=== PATIENT | female | born 1985 | race African-American/Black ===

== ENCOUNTER 2018-02-02 14:41 | Emergency (ER) | payer SELFPAY ==
[~2018-02-02] VITALS: Ht 170.2 cm; Wt 70.3 kg
[2018-02-02 15:28] LABS: Basophils # (auto) 0 uL; Basophils % (auto) 0.4 % (0.0-2.0); Eosinophils # (auto) 0.1 uL; Hematocrit 37.3 % (36.0-46.0); Hemoglobin 12.2 g/dL (12.2-16.2); Lymphocytes # (auto) 1.3 uL; Lymphocytes % (auto) 35.3 % (10.0-50.0); Mean Corpuscular Hemoglobin 29.7 pg (28.0-32.0); Mean Corpuscular Hgb Conc. 32.8 g/dL (32.0-36.0); Mean Corpuscular Volume 90.5 fL (80.0-100.0); Monocytes # (auto) 0.2 uL; Monocytes % (auto) 6.6 % (0.0-12.0); Neutrophils # (auto) 2.1 uL; Neutrophils % (auto) 55.7 % (37.0-80.0); Nucleated Red Blood Cells % 0.1 %; Platelet Count (auto) 294 10^3/uL (140-450); Red Blood Cells 4.12 10^6/uL (4.0-5.20); Red Cell Distribution Width 14.3 % (11.8-14.3); White Blood Cell 3.8 10^3/uL (4.4-10.8)
[2018-02-02 15:51] LABS: BUN/Creatinine Ratio 15.8; Calcium 8.8 mg/dL (8.5-10.1); Potassium 3.8 mmol/L (3.5-5.1)
[2018-02-02 15:54] LABS: Total Protein 7.6 g/dL (6.4-8.2)
[2018-02-02 16:31] VITALS: BP 114/77
== END 2018-02-02 16:32 | disposition home or self-care (01) ==
LOC: ER 14:49
DX: N93.9 Abnormal uterine and vaginal bleeding, unspecified (principal); F17.210 Nicotine dependence, cigarettes, uncomplicated
CPT/HCPCS: 36415; 80053; 84702; 85025